=== PATIENT | male | born 1970 | race Two or more races ===

== ENCOUNTER 2024-07-18 18:09 | Emergency (ER) | payer OTHER, SELFPAY ==
[2024-07-18 18:24] VITALS: BP 124/62
[2024-07-18 18:50] LABS: Hematocrit 44.9 % (39.0-52.0); Hemoglobin 15.6 g/dL (13.0-18.0); Mean Corp Hgb Conc. 34.7 g/dL (33.0-37.0); Mean Corpuscular Hgb 27.6 pg (27.0-31.0); Mean Corpuscular Volume 79.5 fL (80.0-94.0); Mean Platelet Volume 9.1 fL (7.4-10.4); Platelet Count 264 10^3/uL (130-400); Red Blood Cell Count 5.65 10^6/uL (4.70-6.10); Red Cell Dist. Width 12.5 % (11.5-14.5)
[2024-07-18 19:12] LABS: ALT (SGPT) 45 U/L (0-50); AST (SGOT) 33 U/L (17-59); Albumin 4.2 g/dl (3.5-5.0); Alkaline Phosphatase 88 U/L (38-126); Blood Urea Nitrogen 16 mg/dl (9-20); Calcium 9.6 mg/dl (8.4-10.2); Carbon Dioxide 29 mmol/L (22-30); Chloride 106 mmol/L (98-107); Glucose 118 mg/dl (70-99); Potassium 4.5 mmol/L (3.5-5.1); Sodium 141 mmol/L (135-145); Total Protein 7.1 g/dl (6.3-8.2); Troponin I < 0.012 ng/ml; eGFR > 60.00
--- NOTE | 2024-07-18 19:55 | ED.GENMED ---
History of Present Illness
General
Chief Complaint: Abdominal Pain
Source: patient
Exam Limitations: none
Time Seen by Provider: 07/18/24 19:45
Nursing documentation reviewed up to this point in time: agreed with
History of Present Illness
History of Present Illness:
54-year-old male with past medical history of hyperlipidemia presents to the emergency room for evaluation of abdominal pain. Patient reports onset of symptoms 5 days ago and they have been constant since that time. He reports a vague pressure
sensation in the epigastrium radiates up the center of his chest. Somewhat worse in the mornings. No relieving factors noted. He denies any associated nausea, vomiting. He did have some loose stools for the first 2 days of his symptoms but they
have resolved. He denies any shortness of breath. No exertional symptoms in fact he says he went for a run yesterday without any issue. Denies any swelling or pain in the legs. He says he has never had similar symptoms in the past. He does note
that he recently traveled to [facility] for a wedding and admits to overindulgence of food while there although denies heavy drinking.
Past History
Past History
ED Past Medical History: None
Social History
Tobacco: Non-smoker
Personal:
Living: with family
Employment: Employed
Review of Systems
Review of Systems
All Other Systems: ROS reviewed and negative except as documented in HPI and ROS
Constitutional: Denies fever or chills
Respiratory: Denies cough or trouble breathing
Cardiac: Reports chest pain (Radiates towards chest); Denies palpitations
ABD/GI: Reports abdominal pain and diarrhea (X 48 hours, resolved); Denies nausea or vomiting
: Denies dysuria, flank pain or bleeding
Musculoskeletal: Denies edema, neck pain or back pain
Neurological: Denies headache
Phy Exam
Physical Exam
Physical Exam:
General: Awake, alert; no acute distress
Head: Normocephalic, atraumatic
Eyes: Conjunctiva normal, sclera anicteric
Throat: Airway intact, handling secretions
Neck: Trachea midline, supple without meningismus
Lungs: Clear to auscultation bilaterally, no wheezing, rales, rhonchi
Heart: Regular rate and rhythm, no murmurs, gallops, or rubs
Abd: Soft, non distended, mildly tender right upper abdomen with no rebound or guarding and no palpable masses
Neuro: No gross deficits
Skin: no rash in area of concern
Extremities: No edema in extremities, no calf tenderness, equal pulses in all extremities
Scores
Heart Failure Risk
Heart Failure Risk Score: Not Applicable
Heart Score for Chest Pain Patients
STEMI patient?: Not applicable
Withdrawal Assessment of Alcohol
Withdrawal Assessment Completed?: Not applicable
Course
Orders/Labs/Results
Orders:
Orders
07/18/24 18:28
Electrocardiogram (*1) Urgent
Reason for Study: Chest Pain
EKG- Treatment ONCE
07/18/24 18:39
Complete Blood Count/With Diff Urgent
Comprehensive Metabolic Panel Urgent
Lipase Urgent
Comment: ADDON
Troponin I Urgent
07/18/24 19:53
US Abdomen Complete/Upper Urgent
Comment:
Reason For Exam: epigastric pain
07/18/24 19:54
Add On- LAB Urgent
Tests Added?: lipase
07/18/24 20:08
D-Dimer Urgent
Abnormal Lab Results
07/18/24
18:39
MCV 79.5 L fL
(80.0-94.0)
Glucose 118 H mg/dl
(70-99)
07/18/24 18:39
07/18/24 18:39
Vital Signs
Initial and Last Documented VS:
Initial Vital Signs
Temp Pulse Resp BP Pulse Ox
36.7 C 72 16 124/62 100
07/18/24 18:24 07/18/24 18:24 07/18/24 18:24 07/18/24 18:24 07/18/24 18:24
Last Documented Vital Signs
Temp Pulse Resp BP Pulse Ox
36.7 C 72 16 124/62 100
07/18/24 18:24 07/18/24 18:24 07/18/24 18:24 07/18/24 18:24 07/18/24 18:24
MDM/Problems Addressed
Differential Diagnosis Includes:
Gastritis/GERD, cholelithiasis/cholecystitis, pancreatitis, anginal equivalent, PE less likely clinically
MDM/Problems Addressed:
54-year-old male presents for evaluation of epigastric pain rating to the chest for the past 5 days since returning from a wedding in [facility]. Vitals and exam as above. He had an EKG in triage which shows sinus rhythm with no STEMI. He had labs
sent off in triage including a CBC which showed no clinically significant abnormalities, CMP which was within acceptable range�notably normal LFTs. He had a troponin which is undetectable x 1�sufficient to rule out acute CA in the setting of 5 days
of constant symptoms. Will add on lipase. Check upper abdominal ultrasound. Given recent flight, check d-dimer--low clinical suspicion for PE. Reassess after the above�clinical suspicion is for gastritis/GERD.
Lipase normal. D-dimer negative. Ultrasound shows no acute abnormalities. Suspect likely GERD/gastritis. Will start on PPI. Clinical exam stable; stable for discharge. Follow-up with PCP. Patient very comfortable with this plan. All
questions answered.
*Radiology
Radiology exam reviewed: radiology read reviewed
*Pulse Oximetry
Patient hypoxic: no
*EKG
Interpreted by ED Provider?: Yes
Heart Rate: 72
Rate: normal
Rhythm: sinus
Interval: normal interval
QRS Pattern: normal QRS
Ischemia: no ischemia
*Critical Care Note
Total Time (30-74mins, 75-104mins- exclusive of procedures): Not Applicable
Data Reviewed
Source: patient and records
ED Attending Note
-
Portions of this chart may have been created with voice recognition software.� Occasional wrong word or��sound alike� substitutions may have occurred due to the inherent limitations of voice recognition software.
Discharge Plan
Departure
Patient Disposition: Home (Routine Discharge)
Date of Disposition: 07/18/24
Time of Disposition: 21:28
Patient with high blood pressure during this ER visit?: No
Discharge Problem:
Epigastric pain
Instructions: Acid Reflux and GERD in Adults (DC), Abdominal Pain
Prescriptions:
New
pantoprazole [Protonix] 40 mg tablet,delayed release (DR/EC)
40 mg PO DAILY Qty: 30 0RF
Referrals:
Donny Dickinson MD [Family Provider] - Follow up in 5-7 days
Activity Restrictions/Additional Instructions:
Thank you for visiting the Emergency Department at [facility].
1. Please schedule a follow up appointment as directed. Call first thing tomorrow morning to make an appointment.
2. If indicated, please take your medications as instructed and indicated on discharge paperwork.
3. If any of your symptoms do not improve, or persist, or become more severe within 6-12 hours, please return to the emergency department for further care.
4. Please return to the emergency department if you develop a headache, neck pain/stiffness, fever greater than 100.4F, chest pain, shortness of breath, persistent nausea, vomiting, slurred speech, difficulty walking, numbness/tingling, weakness,
signs of infection or any other symptoms that are worrisome to you.
Please call [phone] if you have any questions.
Interventions
Interventions:
*Risk Screen - Suicide Last Done: 07/18/24 18:24
*General Assessment Last Done: 07/18/24 18:24
*Neglect/Abuse Screening Last Done: 04/28/25 18:24
Discharge Date and Time
Print Language: [id number]
[2024-07-18 20:30] LABS: Lipase 50 U/L (23-300)
[2024-07-18 20:43] LABS: D-Dimer < 0.27 ug/mlFEU (0.00-0.50)
[2024-07-18 21:44] VITALS: BP 138/75
[2024-07-19 10:58] LABS: Atypical Lymphocytes 3 %; Band Neutrophils 0 % (0-3); Eosinophils 6 % (0-6); Lymphocytes 39 % (20-51); Monocytes 8 % (2-9); Segmented Neutrophils 44 % (42-75)
[2024-07-19 10:59] LABS: Normal RBC Morphology Yes; Platelets Checked Yes; Total Cells Counted 100
== END 2024-07-18 21:46 | disposition home or self-care (01) ==
LOC: EMR 18:09
PROVIDERS: Emergency Medicine; EMERGENCY PHYSICIAN Emergency Medicine; FAMILY PHYSICIAN Family Medicine
DX: R10.13 Epigastric pain (principal); R07.89 Other chest pain; E78.5 Hyperlipidemia, unspecified
CPT/HCPCS: 99284; 76700; 80053; 83690; 84484; 85025; 85379; 93005